=== PATIENT | female | born 1980 | race Two or more races ===

== ENCOUNTER 2020-04-09 05:36 | Emergency (ER) | payer SELFPAY ==
[~2020-04-09] VITALS: Ht 172.7 cm; Wt 54.4 kg
[~2020-04-09 05:36] MED LIST: Albuterol 90mcg Inhaler 8gm INH SCH
[2020-04-09 05:42] VITALS: BP 184/97
[2020-04-09] MEDS ORDERED: LORazepam Inj 2mg/ml 1ml IV ONE (05:45)
[2020-04-09] MEDS ORDERED: Albuterol ud Inhalation HHN ONE (05:45)
--- NOTE | 2020-04-09 05:48 | Emergency Room Report ---
History of Present Illness General Chief Complaint: Dyspnea/Respdistress Source: Patient, EMS (Dimitris Leon MD) Present Illness HPI This is a 40-year-old female with a history of asthma. She presents with chief complaint of shortness of breath. She woke up and that she could not breathe. She is gasping for air. Bystander called 911. Paramedics said that oxygenation was normal but she keep gasping for air. No fever chills but no nausea no vomiting. Patient said that she had this episode before went to the hospital and was given a shot and gent. Patient denies any fever chills but denies any nausea or vomiting. [place] tingly to her body. [place] chest tightness and pain. Pain is 10 out of 10. (Dimitris Leon MD) Allergies: Coded Allergies: No Known Allergies (Unverified , 04/09/20) COVID-19 Screening Contact w/high risk pt: No Recent Travel to affected area: No Experienced COVID-19 symptoms?: No COVID-19 Testing performed TRUCK UNLOADER: No (Dimitris Leon MD) Patient History Past Medical History: see triage record, old chart reviewed, asthma Past Surgical History: none Pertinent Family History: none Social History: Denies: smoking Now: No Immunizations: other Reviewed Nursing Documentation: PMH: Agreed; PSxH: Agreed (Dimitris Leon MD) Nursing Documentation-PMH Hx Hypertension: Yes Hx Asthma: Yes (Dimitris Leon MD) Review of Systems Eye: Denies: eye pain, blurred vision ENT: Denies: ear pain, nose congestion, throat swelling Respiratory: Reports: shortness of breath; Denies: cough Cardiovascular: Denies: chest pain, palpitations Gastrointestinal: Denies: abdominal pain, diarrhea, nausea, vomiting Musculoskeletal: Denies: back pain, joint pain Skin: Denies: rash Neurological: Denies: headache, numbness Endocrine: Denies: increased thirst, increased urine Hematologic/Lymphatic: Denies: easy bruising All Other Systems: negative except mentioned in HPI (Dimitris Leon MD) Physical Exam Vital Signs Date Time Temp Pulse Resp B/P (MAP) Pulse Ox O2 Delivery O2 Flow Rate FiO2 04/09/20 05:37 97.9 109 35 170/99 (122) 99 Room Air Vitals with tachypnea and hypertension Sp02 EP Interpretation: reviewed, normal General Appearance: well appearing, alert, moderate distress Head: normocephalic, atraumatic Eyes: bilateral eye PERRL, bilateral eye EOMI ENT: hearing grossly normal, normal pharynx Neck: full range of motion, supple, no meningismus Respiratory: chest non-tender, lungs clear, normal breath sounds Cardiovascular #1: regular rate, rhythm, no murmur Gastrointestinal: normal bowel sounds, non tender, no mass, no organomegaly, no bruit, non-distended Musculoskeletal: back normal, normal range of motion, gait/station normal Psychiatric: anxious - Extremely anxious (Dimitris Leon MD) Medical Decision Making Diagnostic Impression: Primary Impression: Panic attack Additional Impressions: Cocaine abuse Asthma Qualified Codes: J45.20 - Mild intermittent asthma, uncomplicated ER Course Kahn presents with symptom consistent with panic attack. She is respiratory distress. She never been here before. Will work-up to check for underlying issues. Labs and x-rays are pending. If normal will discharge home. Labs unremarkable. CT scan negative for PE. Urine drug screen positive for drugs from cocaine. This most likely a panic attack from drug induced. (Dimitris Leon MD) ER Course Patient signed out to me pending laboratory studies and reassessment. Urine drug screen positive for cocaine. Chest x-ray reviewed and showed no acute infiltrate. Patient's vital signs stable. D-dimer mildly elevated above normal so CT angiogram of the chest was ordered and showed no evidence of acute pulmonary emboli. Patient stable for discharge. She was counseled on her drug abuse. She was provided albuterol as needed for shortness of breath or wheezing however she had no wheezing in the ER. So did not believe she was in acute asthma exacerbation at this time. Laboratory Tests Test 04/09/20 05:45 04/09/20 06:25 White Blood Count 7.7 K/UL (4.8-10.8) Red Blood Count 3.67 M/UL (4.20-5.40) L Hemoglobin 11.5 G/DL (12.0-16.0) L Hematocrit 33.7 % (37.0-47.0) L Mean Corpuscular Volume 92 FL (80-99) Mean Corpuscular Hemoglobin 31.2 PG (27.0-31.0) H Mean Corpuscular Hemoglobin Concent 33.9 G/DL (32.0-36.0) Red Cell Distribution Width 12.0 % (11.6-14.8) Platelet Count 247 K/UL (150-450) Mean Platelet Volume 4.5 FL (6.5-10.1) L Neutrophils (%) (Auto) 66.8 % (45.0-75.0) Lymphocytes (%) (Auto) 18.2 % (20.0-45.0) L Monocytes (%) (Auto) 13.1 % (1.0-10.0) H Eosinophils (%) (Auto) 1.1 % (0.0-3.0) Basophils (%) (Auto) 0.7 % (0.0-2.0) D-Dimer 0.54 mg/L FEU (0.00-0.49) H Sodium Level 141 MMOL/L (136-145) Potassium Level 3.4 MMOL/L (3.5-5.1) L Chloride Level 102 MMOL/L (98-107) Carbon Dioxide Level 27 MMOL/L (21-32) Anion Gap 12 mmol/L (5-15) Blood Urea Nitrogen 11 mg/dL (7-18) Creatinine 0.6 MG/DL (0.55-1.30) Estimated Glomerular Filtration Rate > 60 mL/min (>60) Glucose Level 101 MG/DL (74-106) Calcium Level 8.5 MG/DL (8.5-10.1) Total Bilirubin 0.8 MG/DL (0.2-1.0) Aspartate Amino Transferase (AST) 67 U/L (15-37) H Alanine Aminotransferase (ALT) 41 U/L (12-78) Alkaline Phosphatase 89 U/L (46-116) Troponin I 0.000 ng/mL (0.000-0.056) Pro-B-Type Natriuretic Peptide 31 pg/mL (0-125) Total Protein 7.9 G/DL (6.4-8.2) Albumin 4.0 G/DL (3.4-5.0) Globulin 3.9 g/dL Albumin/Globulin Ratio 1.0 (1.0-2.7) Urine Color Yellow Urine Appearance Clear Urine pH 6.5 (4.5-8.0) Urine Specific [place] 1.015 (1.005-1.035) Urine Protein 2+ (NEGATIVE) H Urine Glucose (UA) Negative (NEGATIVE) Urine Ketones 3+ (NEGATIVE) H Urine Blood 1+ (NEGATIVE) H Urine Nitrite Negative (NEGATIVE) Urine Bilirubin Negative (NEGATIVE) Urine Urobilinogen 4 MG/DL (0.0-1.0) H Urine Leukocyte Esterase 1+ (NEGATIVE) H Urine RBC 0-2 /HPF (0 - 2) Urine WBC 0-2 /HPF (0 - 2) Urine Squamous Epithelial Cells Few /LPF (NONE/OCC) Urine Bacteria Few /HPF (NONE) Urine HCG, Qualitative Negative (NEGATIVE) Urine Opiates Screen Negative (NEGATIVE) Urine Barbiturates Screen Negative (NEGATIVE) Phencyclidine (PCP) Screen Negative (NEGATIVE) Urine Amphetamines Screen Negative (NEGATIVE) Urine Benzodiazepines Screen Negative (NEGATIVE) Urine Cocaine Screen Positive (NEGATIVE) H Urine Marijuana (THC) Screen Negative (NEGATIVE) (Pelon Perez M.D.) EKG Diagnostic Results Rate: tachycardiac Rhythm: NSR ST Segments: no acute changes (Dimitris Leon MD) Rhythm Strip Diag. Results EP Interpretation: yes Rate: 88 Rhythm: NSR, no PVC's, no ectopy (Dimitris Leon MD) CT/MRI/US Diagnostic Results CT/MRI/US Diagnostic Results : Imaging Test Ordered: CT chest Impression Negative per radiologist (Dimitris Leon MD) CT/MRI/US Diagnostic Results : Imaging Test Ordered: CT angiogram of the chest Impression FINDINGS: Pulmonary arteries: Evaluation for peripheral pulmonary emboli slightly limited due to breathing motion artifact. No central emboli are identified. Aorta: No acute findings. No thoracic aortic aneurysm. Lungs: There is mild bibasilar atelectasis. No consolidating infiltrates identified. Note is also made of a 5 mm calcified granuloma in the left lower lobe. Pleural space: Unremarkable. No significant effusion. No pneumothorax. Heart: Unremarkable. No cardiomegaly. No significant pericardial effusion. No evidence of RV dysfunction. Bones/joints: No acute fracture. No dislocation. Soft tissues: Unremarkable. Lymph nodes: Unremarkable. No enlarged lymph nodes. IMPRESSION: No acute findings in the visualized arteries of the chest. (Pelon Perez M.D.) Last Vital Signs Date Time Temp Pulse Resp B/P (MAP) Pulse Ox O2 Delivery O2 Flow Rate FiO2 6/2/20 05:42 97.9 121 35 184/97 99 Room Air Status: improved (Dimitris Leon MD) Status: improved (Pelon Perez M.D.) Disposition: HOME, SELF-CARE Condition: Stable Scripts Ibuprofen* (MOTRIN*) 600 Mg Tablet 600 MG ORAL Q6H PRN for For Pain, #30 TAB 0 Refills Prov: Pelon Perez M.D. 04/09/20 Albuterol Sulfate* (Albuterol Sulfate Hfa*) 8.5 Gm Hfa.aer.ad 2 PUFF INH Q6H, #1 INH Prov: Pelon Perez M.D. 04/09/20 Dimitris Leon MD Apr 09, 2020 05:48 Pelon Perez M.D. Apr 09, 2020 08:57
[2020-04-09 05:56] VITALS: BP 132/82
[2020-04-09 06:18] LABS: BASOPHILS % (AUTO) 0.7 % (0.0-2.0); EOSINOPHILS % (AUTO) 1.1 % (0.0-3.0); HEMATOCRIT 33.7 % (37.0-47.0); HEMOGLOBIN 11.5 G/DL (12.0-16.0); LYMPHOCYTES % (AUTO) 18.2 % (20.0-45.0); MEAN CORPUSCULAR VOLUME 92 FL (80-99); MONOCYTES % (AUTO) 13.1 % (1.0-10.0); NEUTROPHILS % (AUTO) 66.8 % (45.0-75.0); PLATELET COUNT 247 K/UL (150-450); RED BLOOD COUNT 3.67 M/UL (4.20-5.40); WHITE BLOOD COUNT 7.7 K/UL (4.8-10.8)
[2020-04-09 06:20] LABS: ANION GAP 12 mmol/L (5-15); BLOOD UREA NITROGEN 11 mg/dL (7-18); CALCIUM 8.5 MG/DL (8.5-10.1); CARBON DIOXIDE 27 MMOL/L (21-32); CHLORIDE 102 MMOL/L (98-107); CREATININE 0.6 MG/DL (0.55-1.30); POTASSIUM 3.4 MMOL/L (3.5-5.1); SODIUM 141 MMOL/L (136-145)
[2020-04-09 06:30] LABS: ALANINE AMINOTRANSFERASE 41 U/L (12-78); ALKALINE PHOSPHATASE 89 U/L (46-116); ASPARTATE AMINO TRANSFERASE 67 U/L (15-37); BILIRUBIN,TOTAL 0.8 MG/DL (0.2-1.0)
[2020-04-09] MEDS ORDERED: Acetaminophen 500mg (ES) tab ORAL ONE (06:30)
[2020-04-09 06:36] LABS: APPEARANCE,URINE CLEAR; BILIRUBIN, URINE NEGATIVE (NEGATIVE); GLUCOSE, URINE (UA) NEGATIVE (NEGATIVE); KETONES,URINE 3+ (NEGATIVE); LEUKOCYTE ESTERASE ,URINE 1+ (NEGATIVE); NITRITE,URINE NEGATIVE (NEGATIVE); PH,URINE 6.5 (4.5-8.0); PROTEIN,URINE 2+ (NEGATIVE); UROBILINOGEN,URINE 4 MG/DL (0.0-1.0)
[2020-04-09 06:46] LABS: COLOR,URINE YELLOW
[2020-04-09] MEDS ORDERED: Omnipaque 350 100ml vial INJ PRN (07:00)
--- NOTE | 2020-04-09 08:08 | Diagnostic Imaging Report ---
EXAM: CT Angiography Chest With Intravenous Contrast CLINICAL HISTORY: SOB TECHNIQUE: Axial computed tomographic angiography images of the chest with intravenous contrast. CTDI is 30 mGy and DLP is 139 mGy-cm. One or more of the following dose reduction techniques were used: automated exposure control, adjustment of the mA and/or kV according to patient size, use of iterative reconstruction technique. 3D and MIP reconstructed images were created and reviewed. COMPARISON: No relevant prior studies available. FINDINGS: Pulmonary arteries: Evaluation for peripheral pulmonary emboli slightly limited due to breathing motion artifact. No central emboli are identified. Aorta: No acute findings. No thoracic aortic aneurysm. Lungs: There is mild bibasilar atelectasis. No consolidating infiltrates identified. Note is also made of a 5 mm calcified granuloma in the left lower lobe. Pleural space: Unremarkable. No significant effusion. No pneumothorax. Heart: Unremarkable. No cardiomegaly. No significant pericardial effusion. No evidence of RV dysfunction. Bones/joints: No acute fracture. No dislocation. Soft tissues: Unremarkable. Lymph nodes: Unremarkable. No enlarged lymph nodes. IMPRESSION: No acute findings in the visualized arteries of the chest.
[2020-04-09] MEDS ORDERED: ALBUTEROL SULF8.5 G1 INH (08:18)
[2020-04-09] MEDS ORDERED: IBUPROFEN600 M1 ORAL (08:19)
[2020-04-09 09:16] VITALS: BP 126/76
--- NOTE | 2020-04-10 17:07 | Diagnostic Imaging Report ---
Indication: Shortness of breath Technique: One view of the chest Comparison: none Findings: Inspiration is suboptimal. The lungs and pleural spaces are clear. The heart size is normal. Impression: No acute process
== END 2020-04-09 09:16 | disposition home or self-care (01) ==
LOC: EDBD 05:36 → EMR 05:55
DX: F41.0 Panic disorder [episodic paroxysmal anxiety] (principal); F14.10 Cocaine abuse, uncomplicated; J45.20 Mild intermittent asthma, uncomplicated; I10 Essential (primary) hypertension; I26.99 Other pulmonary embolism without acute cor pulmonale
CPT/HCPCS: 36415; 71045; 71275; 80053; 80307; 81003; 81025; 83880; 84484; 85025; 85379; 93005; 96361; 96374; 99284; J7030; Q9967

== ENCOUNTER 2020-09-28 15:12 | Emergency (ER) | payer SELFPAY ==
[~2020-09-28] VITALS: Ht 157.5 cm; Wt 68.0 kg
[~2020-09-28 15:12] MED LIST changes: +ALBUTEROL SULF8.5 G1 INH; -Albuterol 90mcg Inhaler 8gm INH SCH; +IBUPROFEN600 M1 ORAL
[2020-09-28 15:16] VITALS: BP 138/78
--- NOTE | 2020-09-28 15:16 | NUR ---
ED Nurse Note: Pt ERNESTINE GUTIERREZ from the street c/o abdominal pain. Pt also c/o headache and mild difficulty breathing. Pt has hx of asthma but is not any inhaler. Denies n/v/d. Pt reports drinking alcohol today, noted with alcohol breath odor. AAox4, verbally responsive. No SOB. Pt placed on quality assurance monitor body. ERMD at bedside.
[2020-09-28] MEDS ORDERED: Metoclopramide 10mg/2ml Inj IVP ONE (15:30)
[2020-09-28] MEDS ORDERED: DiphenhydrAMINE 50mg/ml Inj IVP ONE (15:30)
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
--- NOTE | 2020-09-28 15:32 | NUR ---
ED Nurse Note: Iv line established. Blood sent to lab.
--- NOTE | 2020-09-28 15:34 | NUR ---
ED Nurse Note: Xray at bedside.
--- NOTE | 2020-09-28 15:48 | NUR ---
ED Nurse Note: Urine sent to lab.
[2020-09-28 15:53] LABS: HEMATOCRIT 34.5 % (37.0-47.0); HEMOGLOBIN 11.2 G/DL (12.0-16.0); MEAN CORPUSCULAR VOLUME 98 FL (80-99); PLATELET COUNT 153 K/UL (150-450); RED BLOOD COUNT 3.53 M/UL (4.20-5.40); RED CELL DISTRIBUTION WIDTH 15.1 % (11.6-14.8); WHITE BLOOD COUNT 3.1 K/UL (4.8-10.8)
[2020-09-28 15:55] LABS: BASOPHILS % (AUTO) 2.2 % (0.0-2.0); EOSINOPHILS % (AUTO) 1.9 % (0.0-3.0); LYMPHOCYTES % (AUTO) 38.8 % (20.0-45.0); MONOCYTES % (AUTO) 10.7 % (1.0-10.0); NEUTROPHILS % (AUTO) 46.4 % (45.0-75.0)
[2020-09-28 16:00] LABS: APPEARANCE,URINE CLEAR; BILIRUBIN, URINE NEGATIVE (NEGATIVE); COLOR,URINE PALE YELLOW; GLUCOSE, URINE (UA) NEGATIVE (NEGATIVE); KETONES,URINE NEGATIVE (NEGATIVE); LEUKOCYTE ESTERASE ,URINE NEGATIVE (NEGATIVE); NITRITE,URINE NEGATIVE (NEGATIVE); PH,URINE 5 (4.5-8.0); PROTEIN,URINE NEGATIVE (NEGATIVE); UROBILINOGEN,URINE NORMAL MG/DL (0.0-1.0)
[2020-09-28 16:11] LABS: AMMONIA 28 umol/L (11-32)
[2020-09-28 16:12] LABS: ALANINE AMINOTRANSFERASE 95 U/L (12-78); ALBUMIN 3.5 G/DL (3.4-5.0); ALBUMIN/GLOBULIN RATIO 0.9 (1.0-2.7); ALKALINE PHOSPHATASE 144 U/L (46-116); ASPARTATE AMINO TRANSFERASE 210 U/L (15-37); BILIRUBIN,TOTAL 0.4 MG/DL (0.2-1.0); BLOOD UREA NITROGEN 6 mg/dL (7-18); CALCIUM 8.3 MG/DL (8.5-10.1); CARBON DIOXIDE 26 MMOL/L (21-32); CHLORIDE 104 MMOL/L (98-107); CREATININE 0.6 MG/DL (0.55-1.30); POTASSIUM 3.3 MMOL/L (3.5-5.1); SODIUM 141 MMOL/L (136-145)
--- NOTE | 2020-09-28 16:26 | Diagnostic Imaging Report ---
History: ABD PAIN Exam: XR CXR 1 VIEW Comparison: 04/09/2020 FINDINGS: The lungs are clear. The cardiac and mediastinal contours appear within limits. Right lateral lower rib fracture deformities with appearance of callus noted. IMPRESSION: No evidence of acute disease.
[2020-09-28 18:06] VITALS: BP 132/71
[2020-09-28 19:01] VITALS: BP 132/71
--- NOTE | 2020-09-28 19:01 | NUR ---
ED Nurse Note: Pt cleared by ERMD for discharge. DC instructions was given and explained to pt and verbalized understanding of teachings. All medical deviecs such as ID band and IV line removed. Pt is AAO x4, ambulatory and left with all personal belongings.
[2020-09-28] MEDS ORDERED: TYLENOL325 MG ORAL (19:03)
[2020-09-28] MEDS ORDERED: FAMOTIDINE20 MG ORAL (19:03)
[2020-09-28] MEDS ORDERED: ALBUTEROL SULF8.5 G1 INH (19:06)
--- NOTE | 2020-09-29 20:37 | Cardiology Report ---
APPROVED REPORT EKG Measurement Heart [id number] <Conclusion> Normal sinus rhythm Normal ECG
== END 2020-09-28 19:01 | disposition other institution (70) ==
LOC: EDBD 15:12 → EMR 15:25
DX: R10.84 Generalized abdominal pain (principal); F10.929 Alcohol use, unspecified with intoxication, unspecified; F14.10 Cocaine abuse, uncomplicated; R74.01 Elevation of levels of liver transaminase levels; I10 Essential (primary) hypertension; J45.909 Unspecified asthma, uncomplicated; Z79.899 Other long term (current) drug therapy
CPT/HCPCS: 36415; 71045; 80053; 80307; 81003; 81025; 82140; 83690; 84484; 85025; 85610; 85730; 93005; 96361; 96374; 96375; 99284; G0480; J1200; J2765; J7030; S0028

== ENCOUNTER 2020-09-30 11:37 | Inpatient (IN) | payer BC, MEDICAID, OTHER ==
[~2020-09-30] VITALS: Ht 154.9 cm; Wt 61.2 kg
[~2020-09-30 11:37] MED LIST changes: +FAMOTIDINE20 MG ORAL; +TYLENOL325 MG ORAL
[2020-09-30] MEDS ORDERED: Morphine Sulfate 4mg/ml Inj (IV USE ONLY) IVP ONE ×4 (11:45→17:45)
[2020-09-30] MEDS ORDERED: Omnipaque-300 100ml vial INJ PRN (11:45)
[2020-09-30 11:55] LABS: BASOPHILS % (AUTO) 1.7 % (0.0-2.0); HEMATOCRIT 39.7 % (37.0-47.0); HEMOGLOBIN 12.4 G/DL (12.0-16.0); LYMPHOCYTES % (AUTO) 45.5 % (20.0-45.0); MEAN CORPUSCULAR VOLUME 103 FL (80-99); MONOCYTES % (AUTO) 6.9 % (1.0-10.0); PLATELET COUNT 180 K/UL (150-450); RED BLOOD COUNT 3.87 M/UL (4.20-5.40); RED CELL DISTRIBUTION WIDTH 14.4 % (11.6-14.8); WHITE BLOOD COUNT 3.9 K/UL (4.8-10.8)
--- NOTE | 2020-09-30 12:11 | Emergency Room Report ---
History of Present Illness General Chief Complaint: Abdominal Pain Source: Patient, EMS (Ferny Hart MD) Present Illness HPI Disclaimer: Please note that this report is being documented using DRAGON technology. This can lead to erroneous entry secondary to incorrect in terpretation by the dictating instrument. HPI: 40-year-old female arrives by EMS for complaints of abdominal pain. Symptoms began this morning. She reports epigastric abdominal pain 10 out of 10 severity that radiates through the entire abdomen. Denies nausea, vomiting or diarrhea. States she ate chicken and rice last night. Denies fever or chills. Reports recently being treated for pneumonia otherwise states she takes no medications. Prior abdominal surgery. Reports pain over the flanks as well. De nies dysuria or hematuria. PMH: Reviewed PSH: unspecified abd surgery Allergies: Reviewed Social Hx: Substance abuse (Ferny Hart MD) Allergies: Coded Allergies: No Known Allergies (Unverified , 09/30/20) COVID-19 Screening Contact w/high risk pt: No Experienced COVID-19 symptoms?: No COVID-19 Testing performed DRESS CAP MAKER: No (Ferny Hart MD) Patient History Now: No (Ferny Hart MD) Review of Systems All Other Systems: negative except mentioned in HPI (Ferny Hart MD) Physical Exam Vital Signs Date Time Temp Pulse Resp B/P (MAP) Pulse Ox O2 Delivery O2 Flow Rate FiO2 09/30/20 11:29 97.9 86 18 134/65 (88) 96 Room Air General: Awake and alert, appears uncomfortable, crying HEENT: NC/AT. EOMI. Cardiovascular: RRR. S1 and S2 normal. No murmur appreciated Resp: Normal work of breathing. Abdomen: Abdomen is soft, nondistended. Tender palpation in the epigastrium. Full exam limited due to poor patient cooperation. Skin: Intact. No abrasions, laceration or rash over the exposed skin MSK: Normal tone and bulk. Moving all extremities. No obvious deformity. Neuro: Awake and alert. Mentating appropriately. (Ferny Hart MD) Procedures Critical Care Time Critical Care Time Total critical care time: Approximately 45 minutes Due to a high probability of clinically significant, life threatening deteriora tion, the patient required the highest level of preparedness to intervene emergently and I personally spent this critical care time directly and personally managing the patient. This critical care time included obtaining a history, examining the patient, pulse oximetry, ordering and reviewing studies, ordering treatments, evaluating response to treatment and updating management plan as needed, frequent reassessment and discussion with other providers as well as arranging for ultimate disposition. This critical to care time was performed to assess and manage the high probability of life-threatening deterioration that could result in multiorgan failure. This critical care time is separate from the separately billable procedures and treating other patients. (Ferny Hart MD) Medical Decision Making Diagnostic Impression: Primary Impression: Internal hernia Additional Impression: Bowel obstruction ER Course 40-year-old female presents for evaluation of sudden onset abdominal pain since this morning. Differential includes was not limited to gastritis, gastroenteritis, pancreatitis, cholecystitis, hepatitis, nephrolithiasis, pyelonephritis, appendicitis, bowel obstruction, mesenteric ischemia to name a few. Patient arrives visibly uncomfortable. IV fluids, pain medication and antiemetics are provided. Blood work returned largely within normal limits. CT concerning for internal hernia and mesenteric ischemia/bowel ischemia per radiology. Surgery consult obtained. Patient will be admitted. Preop labs ordered Laboratory Tests Test 09/30/20 11:40 White Blood Count 3.9 K/UL (4.8-10.8) L Red Blood Count 3.87 M/UL (4.20-5.40) L Hemoglobin 12.4 G/DL (12.0-16.0) Hematocrit 39.7 % (37.0-47.0) Mean Corpuscular Volume 103 FL (80-99) H Mean Corpuscular Hemoglobin 32.0 PG (27.0-31.0) H Mean Corpuscular Hemoglobin Concent 31.2 G/DL (32.0-36.0) L Red Cell Distribution Width 14.4 % (11.6-14.8) Platelet Count 180 K/UL (150-450) Mean Platelet Volume 6.7 FL (6.5-10.1) Neutrophils (%) (Auto) 45.0 % (45.0-75.0) Lymphocytes (%) (Auto) 45.5 % (20.0-45.0) H Monocytes (%) (Auto) 6.9 % (1.0-10.0) Eosinophils (%) (Auto) 1.0 % (0.0-3.0) Basophils (%) (Auto) 1.7 % (0.0-2.0) Sodium Level 140 MMOL/L (136-145) Potassium Level 3.0 MMOL/L (3.5-5.1) L Chloride Level 102 MMOL/L (98-107) Carbon Dioxide Level 26 MMOL/L (21-32) Anion Gap 12 mmol/L (5-15) Blood Urea Nitrogen 7 mg/dL (7-18) Creatinine 0.6 MG/DL (0.55-1.30) Estimated Glomerular Filtration Rate > 60 mL/min (>60) Glucose Level 137 MG/DL (74-106) H Calcium Level 8.7 MG/DL (8.5-10.1) Total Bilirubin 0.7 MG/DL (0.2-1.0) Aspartate Amino Transferase (AST) 156 U/L (15-37) H Alanine Aminotransferase (ALT) 93 U/L (12-78) H Alkaline Phosphatase 134 U/L (46-116) H Total Protein 8.1 G/DL (6.4-8.2) Albumin 4.0 G/DL (3.4-5.0) Globulin 4.1 g/dL Albumin/Globulin Ratio 1.0 (1.0-2.7) Lipase 391 U/L (73-393) Human Chorionic Gonadotropin, Qual Negative (NEGATIVE) (Ferny Hart MD) ER Course Endorsed to me by Dr. Hart. Surgery has been consulted and has been seen by Dr. Tovar. Patient was given pain medications and lactic acid level was noted to be elevated. Repeat patient given further IV fluids and pain medications. Dr. Germán Díaz was contacted for inpatient management due to panel physician. (Stephan Cabrera MD) Last Vital Signs Date Time Temp Pulse Resp B/P (MAP) Pulse Ox O2 Delivery O2 Flow Rate FiO2 09/30/20 11:29 97.9 86 18 134/65 (88) 96 Room Air (Ferny Hart MD) Disposition: ADMITTED INPATIENT Condition: Serious Scripts Unable to Obtain Active Prescriptions or Reported Meds Ferny Hart MD Sep 30, 2020 12:11 Stephan Cabrera MD Sep 30, 2020 16:31
[2020-09-30 12:23] LABS: ALANINE AMINOTRANSFERASE 93 U/L (12-78); ALKALINE PHOSPHATASE 134 U/L (46-116); ANION GAP 12 mmol/L (5-15); ASPARTATE AMINO TRANSFERASE 156 U/L (15-37); BILIRUBIN,TOTAL 0.7 MG/DL (0.2-1.0); BLOOD UREA NITROGEN 7 mg/dL (7-18); CALCIUM 8.7 MG/DL (8.5-10.1); CARBON DIOXIDE 26 MMOL/L (21-32); CHLORIDE 102 MMOL/L (98-107); CREATININE 0.6 MG/DL (0.55-1.30); SODIUM 140 MMOL/L (136-145)
[2020-09-30] MEDS ORDERED: LORazepam Inj 2mg/ml 1ml IV ONE ×2 (13:00→16:45)
--- NOTE | 2020-09-30 14:33 | Diagnostic Imaging Report ---
Clinical Indication: Bilateral flank pain Technique: No oral contrast utilized, per emergency room physician request IV administration nonionic contrast. Venous phase spiral acquisition obtained through the abdomen and pelvis. Multiplanar reconstructions were generated. Total dose length product 211 mGycm. CTDIvol(s) 4 mGy. Dose reduction achieved using automated exposure control Comparison: none Findings: Lack of enteric contrast limits assessment of the GI tract. There are thick-walled jejunal loops in the left side of the abdomen enhance considerably less than the remainder of the small bowel and there is some distortion of the mesenteric root in this area. The underlying mesentery is very edematous, and there is also some free fluid intercalating along the leaves of the mesentery. A small amount of ascites fluid is also seen in the pelvis. Small bowel loops leading into the area of abnormality are somewhat prominent and gas-filled. Small bowel exiting the area of abnormality appears somewhat compressed. The visualized mesenteric vessels appear to be patent. The appendix is normal. A surgical staple line is seen involving what is probably distal ileum, although the anatomy of this region is somewhat distorted. Some small bowel feces are seen in the distal small bowel indicating stasis of contents. No evidence of diverticulosis or diverticulitis. The stomach is somewhat distended. No free intraperitoneal gas. The liver, gallbladder, bile ducts, pancreas, spleen, adrenals, kidneys are unremarkable. No retroperitoneal or mesenteric mass or adenopathy. No pelvic mass or adenopathy. The bladder is unremarkable. The uterus and ovaries are unremarkable. The included lung bases demonstrate some posterior atelectatic changes. The bones demonstrate degenerative spondylosis changes. Impression: Long segment of proximal jejunal wall thickening, decreased enhancement, and marked congestion of the attached mesentery. Although there is only minimal if any bowel dilatation, the possibility of a strangulated internal hernia should be considered. Ischemic or nonischemic enteritis also is a possibility. Critical value findings discussed by phone with Drs. Hart and La at the time of interpretation Free intraperitoneal fluid, presumably related to the above Evidence of prior distal ileal surgery Small bowel feces distally, indicating stasis of contents Posterior pulmonary parenchymal atelectatic changes Spondylosis The CT scanner at [facility] is accredited by the [employer] and the scans are performed using protocols designed to limit radiation exposure to as low as reasonably achievable to attain images of sufficient resolution adequate for diagnostic evaluation.
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
[2020-09-30] MEDS ORDERED: HYDROmorphone 1mg/ml Carpuject IVP ONE ×2 (14:45→15:30)
[2020-09-30 15:01] VITALS: BP 110/70
[2020-09-30 17:00] VITALS: BP 119/75
[2020-09-30 17:26] LABS: APPEARANCE,URINE CLEAR; BILIRUBIN, URINE NEGATIVE (NEGATIVE); GLUCOSE, URINE (UA) NEGATIVE (NEGATIVE); KETONES,URINE 3+ (NEGATIVE); LEUKOCYTE ESTERASE ,URINE NEGATIVE (NEGATIVE); NITRITE,URINE NEGATIVE (NEGATIVE); PH,URINE 6.5 (4.5-8.0); PROTEIN,URINE 2+ (NEGATIVE); UROBILINOGEN,URINE 1 MG/DL (0.0-1.0)
[2020-09-30 17:51] LABS: COLOR,URINE YELLOW
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
[2020-09-30 18:55] VITALS: BP 83/50
[2020-09-30 20:00] VITALS: BP 89/67
[2020-10-01] VITALS: BP 84/57
[2020-10-01] MEDS: Morphine Sulfate 4mg/ml Inj (IV USE ONLY) IVP PRN ×2 (01:04→05:19)
[2020-10-01 04:00] VITALS: BP 104/71
[2020-10-01 06:13] LABS: BASOPHILS % (AUTO) 0.3 % (0.0-2.0); EOSINOPHILS % (AUTO) 0.2 % (0.0-3.0); HEMATOCRIT 35.4 % (37.0-47.0); LYMPHOCYTES % (AUTO) 10.2 % (20.0-45.0); MEAN CORPUSCULAR VOLUME 104 FL (80-99); MONOCYTES % (AUTO) 7.7 % (1.0-10.0); NEUTROPHILS % (AUTO) 81.7 % (45.0-75.0); PLATELET COUNT 148 K/UL (150-450); RED BLOOD COUNT 3.42 M/UL (4.20-5.40); RED CELL DISTRIBUTION WIDTH 14.6 % (11.6-14.8); WHITE BLOOD COUNT 8.7 K/UL (4.8-10.8)
[2020-10-01 06:45] LABS: ALANINE AMINOTRANSFERASE 54 U/L (12-78); ALBUMIN 2.6 G/DL (3.4-5.0); ALBUMIN/GLOBULIN RATIO 0.8 (1.0-2.7); ALKALINE PHOSPHATASE 95 U/L (46-116); AMYLASE 38 U/L (25-115); ANION GAP 8 mmol/L (5-15); ASPARTATE AMINO TRANSFERASE 66 U/L (15-37); BLOOD UREA NITROGEN 17 mg/dL (7-18); CALCIUM 7.2 MG/DL (8.5-10.1); CARBON DIOXIDE 24 MMOL/L (21-32); CHLORIDE 107 MMOL/L (98-107); CREATININE 0.6 MG/DL (0.55-1.30); POTASSIUM 4.1 MMOL/L (3.5-5.1); SODIUM 139 MMOL/L (136-145)
[2020-10-01] MEDS ORDERED: Albuterol 90mcg Inhaler 8gm INH SCH (07:00)
[2020-10-01 08:00] VITALS: BP 125/70
[2020-10-01] MEDS: Morphine Sulfate 2mg/ml Inj(IV/IM USE ONLY) IVP PRN ×3 (09:28→20:19)
[2020-10-01] MEDS ORDERED: LORazepam 1mg tab ORAL PRN (09:45)
--- NOTE | 2020-10-01 09:53 | General Progress Note ---
Subjective Allergies: Coded Allergies: No Known Allergies (Unverified , 04/09/20) Subjective care noted having asthma attack Objective Last 24 Hour Vital Signs Date Time Temp Pulse Resp B/P (MAP) Pulse Ox O2 Delivery O2 Flow Rate FiO2 10/01/20 07:57 Room Air 21 10/01/20 07:57 Room Air 21 10/01/20 05:49 97.8 10/01/20 04:00 98.0 90 19 104/71 (82) 100 10/01/20 01:34 97.8 10/01/20 00:00 97.8 102 19 84/57 (66) 97 09/30/20 22:42 Room Air 09/30/20 20:00 97.8 101 19 89/67 (74) 97 09/30/20 18:55 98.6 106 19 83/50 (61) 97 09/30/20 18:15 98.6 91 20 139/86 99 Room Air 09/30/20 17:14 81 20 126/79 98 09/30/20 17:00 98.1 95 18 119/75 99 Room Air 09/30/20 16:44 90 18 110/70 98 09/30/20 15:01 98.2 90 18 110/70 98 Room Air 09/30/20 14:59 92 18 Room Air 09/30/20 13:43 87 18 132/67 98 09/30/20 13:13 92 22 141/72 97 09/30/20 11:29 97.9 86 18 134/65 (88) 96 Room Air Laboratory Tests 09/30/20 11:40: White Blood Count 3.9L, Red Blood Count 3.87L, Hemoglobin 12.4, Hematocrit 39.7, Mean Corpuscular Volume 103H, Mean Corpuscular Hemoglobin 32.0H, Mean Corpuscular Hemoglobin Concent 31.2L, Red Cell Distribution Width 14.4, Platelet Count 180, Mean Platelet Volume 6.7, Neutrophils (%) (Auto) 45.0, Lymphocytes (%) (Auto) 45.5H, Monocytes (%) (Auto) 6.9, Eosinophils (%) (Auto) 1.0, Basophils (%) (Auto) 1.7, Sodium Level 140, Potassium Level 3.0L, Chloride Level 102, Carbon Dioxide Level 26, Anion Gap 12, Blood Urea Nitrogen 7, Creatinine 0.6, Estimat Glomerular Filtration Rate > 60, Glucose Level 137H, Calcium Level 8.7, Total Bilirubin 0.7, Aspartate Amino Transf (AST/SGOT) 156H, Alanine Aminotransferase (ALT/SGPT) 93H, Alkaline Phosphatase 134H, Total Protein 8.1, Albumin 4.0, Globulin 4.1, Albumin/Globulin Ratio 1.0, Lipase 391, Human Chorionic Gonadotropin, Qual Negative 09/30/20 14:22: Prothrombin Time 10.7, Prothromb Time International Ratio 1.0, Activated Partial Thromboplast Time 22L, Lactic Acid Level 2.60H 09/30/20 15:55: Lactic Acid Level 3.00H 09/30/20 16:50: Urine Color Yellow, Urine Appearance Clear, Urine pH 6.5, Urine Specific [place] 1.010, Urine Protein 2+H, Urine Glucose (UA) Negative, Urine Ketones 3+H, Urine Blood Negative, Urine Nitrite Negative, Urine Bilirubin Negative, Urine Urobilinogen 1H, Urine Leukocyte Esterase Negative, Urine RBC 0-2, Urine WBC 0- 2, Urine Squamous Epithelial Cells Few, Urine Bacteria Few, Urine HCG, Donovan litative Negative, Urine Opiates Screen PositiveH, Urine Barbiturates Screen Negative, Phencyclidine (PCP) Screen Negative, Urine Amphetamines Screen Negative, Urine Benzodiazepines Screen Negative, Urine Cocaine Screen PositiveH, Urine Marijuana (THC) Screen Negative 10/01/20 05:00: White Blood Count 8.7#, Red Blood Count 3.42L, Hemoglobin 11.0L, Hematocrit 35.4L, Mean Corpuscular Volume 104H, Mean Corpuscular Hemoglobin 32.2H, Mean Corpuscular Hemoglobin Concent 31.1L, Red Cell Distribution Width 14.6, Platelet Count 148L, Mean Platelet Volume 6.6, Neutrophils (%) (Auto) 81.7H, Lymphocytes (%) (Auto) 10.2L, Monocytes (%) (Auto) 7.7, Eosinophils (%) (Auto) 0.2, Basophils (%) (Auto) 0.3, Erythrocyte Sedimentation Rate 20, Prothrombin Time 10.8, Prothromb Time International Ratio 1.0, Activated Partial Thromboplast Time 26, Sodium Level 139, Potassium Level 4.1, Chloride Level 107, Carbon Dioxide Level 24, Anion Gap 8, Blood Urea Nitrogen 17, Creatinine 0.6, Estimat Glomerular Filtration Rate > 60, Glucose Level 91, Lactic Acid Level 0.90, Calcium Level 7.2L, Total Bilirubin 1.0, Aspartate Amino Transf (AST/SGOT) 66H, Alanine Aminotransferase (ALT/SGPT) 54, Alkaline Phosphatase 95, C-Reactive Protein, Quantitative 1.8H, Total Protein 5.9L, Albumin 2.6L, Globulin 3.3, Albumin/Globulin Ratio 0.8L, Amylase Level 38, Lipase 116 Height (Feet): 5 Height (Inches): 1.00 Weight (Pounds): 135 Objective WDWN NAD clear breath sounds bilaterally (when seen) [id number] without MRG diffuse abdominal tenderness no CCE nonfocal Assessment/Plan Assessment/Plan: IMPRESSION: Possible strangulated internal hernia with significant abdominal pain, possible ischemic versus nonischemic enteritis, elevated liver enzymes, possibly due to alcoholic hepatitis, history of drug abuse. Asthma exacerbation RECOMMENDATION: IV solumedrol and Albuterol; Ativan PRN; ABG and CXR; Surgical followup. NPO. IV hydration. Pain control. Follow up laboratories, imaging. Consider empiric antibiotics and defer care to Surgery and we will discuss. Germán Díaz MD Oct 01, 2020 09:53
[2020-10-01] MEDS: Solu-MEDROL 125mg Inj IVP SCH ×2 (10:07→22:20)
--- NOTE | 2020-10-01 11:24 | Surgery Progress Note ---
Surgery Progress Note Subjective Additional Comments states feels better today pain decreased passing flatus no n/v labs improved lactic acid improved with hydration abd exam benign today Objective Last 24 Hour Vital Signs Date Time Temp Pulse Resp B/P (MAP) Pulse Ox O2 Delivery O2 Flow Rate FiO2 10/01/20 09:58 97.8 10/01/20 09:00 Room Air 10/01/20 08:00 97.5 94 19 125/70 (88) 100 10/01/20 07:57 Room Air 21 10/01/20 07:57 Room Air 21 10/01/20 05:49 97.8 10/01/20 04:00 98.0 90 19 104/71 (82) 100 10/01/20 01:34 97.8 10/01/20 00:00 97.8 102 19 84/57 (66) 97 09/30/20 22:42 Room Air 09/30/20 20:00 97.8 101 19 89/67 (74) 97 09/30/20 18:55 98.6 106 19 83/50 (61) 97 09/30/20 18:15 98.6 91 20 139/86 99 Room Air 09/30/20 17:14 81 20 126/79 98 09/30/20 17:00 98.1 95 18 119/75 99 Room Air 09/30/20 16:44 90 18 110/70 98 09/30/20 15:01 98.2 90 18 110/70 98 Room Air 09/30/20 14:59 92 18 Room Air 09/30/20 13:43 87 18 132/67 98 09/30/20 13:13 92 22 141/72 97 09/30/20 11:29 97.9 86 18 134/65 (88) 96 Room Air Cardiovascular: RSR Respiratory: clear Abdomen: soft, flat, non-tender, present bowel sounds, non-distended Extremities: no edema, no tenderness, no cyanosis Laboratory Tests Test 09/30/20 11:40 09/30/20 14:22 09/30/20 15:55 09/30/20 16:50 White Blood Count 3.9 K/UL (4.8-10.8) L Red Blood Count 3.87 M/UL (4.20-5.40) L Hemoglobin 12.4 G/DL (12.0-16.0) Hematocrit 39.7 % (37.0-47.0) Mean Corpuscular Volume 103 FL (80-99) H Mean Corpuscular Hemoglobin 32.0 PG (27.0-31.0) H Mean Corpuscular Hemoglobin Concent 31.2 G/DL (32.0-36.0) L Red Cell Distribution Width 14.4 % (11.6-14.8) Platelet Count 180 K/UL (150-450) Mean Platelet Volume 6.7 FL (6.5-10.1) Neutrophils (%) (Auto) 45.0 % (45.0-75.0) Lymphocytes (%) (Auto) 45.5 % (20.0-45.0) H Monocytes (%) (Auto) 6.9 % (1.0-10.0) Eosinophils (%) (Auto) 1.0 % (0.0-3.0) Basophils (%) (Auto) 1.7 % (0.0-2.0) Sodium Level 140 MMOL/L (136-145) Potassium Level 3.0 MMOL/L (3.5-5.1) L Chloride Level 102 MMOL/L (98-107) Carbon Dioxide Level 26 MMOL/L (21-32) Anion Gap 12 mmol/L (5-15) Blood Urea Nitrogen 7 mg/dL (7-18) Creatinine 0.6 MG/DL (0.55-1.30) Estimat Glomerular Filtration Rate > 60 mL/min (>60) Glucose Level 137 MG/DL (74-106) H Calcium Level 8.7 MG/DL (8.5-10.1) Total Bilirubin 0.7 MG/DL (0.2-1.0) Aspartate Amino Transf (AST/SGOT) 156 U/L (15-37) H Alanine Aminotransferase (ALT/SGPT) 93 U/L (12-78) H Alkaline Phosphatase 134 U/L (46-116) H Total Protein 8.1 G/DL (6.4-8.2) Albumin 4.0 G/DL (3.4-5.0) Globulin 4.1 g/dL Albumin/Globulin Ratio 1.0 (1.0-2.7) Lipase 391 U/L (73-393) Human Chorionic Gonadotropin, Qual Negative (NEGATIVE) Prothrombin Time 10.7 SEC (9.30-11.50) Prothromb Time International Ratio 1.0 (0.9-1.1) Activated Partial Thromboplast Time 22 SEC (23-33) L Lactic Acid Level 2.60 mmol/L (0.4-2.0) H 3.00 mmol/L (0.4-2.0) H Urine Color Yellow Urine Appearance Clear Urine pH 6.5 (4.5-8.0) Urine Specific [place] 1.010 (1.005-1.035) Urine Protein 2+ (NEGATIVE) H Urine Glucose (UA) Negative (NEGATIVE) Urine Ketones 3+ (NEGATIVE) H Urine Blood Negative (NEGATIVE) Urine Nitrite Negative (NEGATIVE) Urine Bilirubin Negative (NEGATIVE) Urine Urobilinogen 1 MG/DL (0.0-1.0) H Urine Leukocyte Esterase Negative (NEGATIVE) Urine RBC 0-2 /HPF (0 - 2) Urine WBC 0-2 /HPF (0 - 2) Urine Squamous Epithelial Cells Few /LPF (NONE/OCC) Urine Bacteria Few /HPF (NONE) Urine HCG, Qualitative Negative (NEGATIVE) Urine Opiates Screen Positive (NEGATIVE) H Urine Barbiturates Screen Negative (NEGATIVE) Phencyclidine (PCP) Screen Negative (NEGATIVE) Urine Amphetamines Screen Negative (NEGATIVE) Urine Benzodiazepines Screen Negative (NEGATIVE) Urine Cocaine Screen Positive (NEGATIVE) H Urine Marijuana (THC) Screen Negative (NEGATIVE) Test 10/01/20 05:00 10/01/20 09:39 White Blood Count 8.7 K/UL (4.8-10.8) # Red Blood Count 3.42 M/UL (4.20-5.40) L Hemoglobin 11.0 G/DL (12.0-16.0) L Hematocrit 35.4 % (37.0-47.0) L Mean Corpuscular Volume 104 FL (80-99) H Mean Corpuscular Hemoglobin 32.2 PG (27.0-31.0) H Mean Corpuscular Hemoglobin Concent 31.1 G/DL (32.0-36.0) L Red Cell Distribution Width 14.6 % (11.6-14.8) Platelet Count 148 K/UL (150-450) L Mean Platelet Volume 6.6 FL (6.5-10.1) Neutrophils (%) (Auto) 81.7 % (45.0-75.0) H Lymphocytes (%) (Auto) 10.2 % (20.0-45.0) L Monocytes (%) (Auto) 7.7 % (1.0-10.0) Eosinophils (%) (Auto) 0.2 % (0.0-3.0) Basophils (%) (Auto) 0.3 % (0.0-2.0) Erythrocyte Sedimentation Rate 20 MM/HR (0-20) Prothrombin Time 10.8 SEC (9.30-11.50) Prothromb Time International Ratio 1.0 (0.9-1.1) Activated Partial Thromboplast Time 26 SEC (23-33) Sodium Level 139 MMOL/L (136-145) Potassium Level 4.1 MMOL/L (3.5-5.1) Chloride Level 107 MMOL/L (98-107) Carbon Dioxide Level 24 MMOL/L (21-32) Anion Gap 8 mmol/L (5-15) Blood Urea Nitrogen 17 mg/dL (7-18) Creatinine 0.6 MG/DL (0.55-1.30) Estimat Glomerular Filtration Rate > 60 mL/min (>60) Glucose Level 91 MG/DL (74-106) Lactic Acid Level 0.90 mmol/L (0.4-2.0) Calcium Level 7.2 MG/DL (8.5-10.1) L Total Bilirubin 1.0 MG/DL (0.2-1.0) Aspartate Amino Transf (AST/SGOT) 66 U/L (15-37) H Alanine Aminotransferase (ALT/SGPT) 54 U/L (12-78) Alkaline Phosphatase 95 U/L (46-116) C-Reactive Protein, Quantitative 1.8 mg/dL (0.00-0.90) H Total Protein 5.9 G/DL (6.4-8.2) L Albumin 2.6 G/DL (3.4-5.0) L Globulin 3.3 g/dL Albumin/Globulin Ratio 0.8 (1.0-2.7) L Amylase Level 38 U/L (25-115) Lipase 116 U/L (73-393) Arterial Blood pH 7.344 (7.350-7.450) Arterial Blood Partial Pressure CO2 42.4 mmHg (35.0-45.0) Arterial Blood Partial Pressure O2 111.1 mmHg (75.0-100.0) H Arterial Blood HCO3 22.6 mmol/L (22.0-26.0) Arterial Blood Oxygen Saturation 97.4 % (95-100) Arterial Blood Base Excess -3.0 (-2-2) L [place] Test Positive Plan Problems: (1) Bowel obstruction (2) Panic attack (3) Asthma (4) Cocaine abuse (5) Abdominal pain Assessment & Plan: 40F abd pain. hx drug use c/o abd pain generalized and body pain asking fo rpain medication labs noted ct reviewed exam not consistent npo iv fluids iv abx will follow with serial exams and recs thank you improved pain improving passing flatus no n/v exam benign labs improved start trial clear liquid diet (6) Acute alcohol intoxication (7) Elevated lipase (8) Abdominal pain Assessment & Plan: Lack of enteric contrast limits assessment of the GI tract. There are thick-walled jejunal loops in the left side of the abdomen enhance considerably less than the remainder of the small bowel and there is some distortion of the mesenteric root in this area. The underlying mesentery is very edematous, and there is also some free fluid intercalating along the leaves of the mesentery. A small amount of ascites fluid is also seen in the pelvis. Small bowel loops leading into the area of abnormality are somewhat prominent and gas-filled. Small bowel exiting the area of abnormality appears somewhat compressed. The visualized mesenteric vessels appear to be patent. The appendix is normal. A surgical staple line is seen involving what is probably distal ileum, although the anatomy of this region is somewhat distorted. Some small bowel feces are seen in the distal small bowel indicating stasis of contents. No evidence of diverticulosis or diverticulitis. The stomach is somewhat distended. No free intraperitoneal gas. The liver, gallbladder, bile ducts, pancreas, spleen, adrenals, kidneys are unremarkable. No retroperitoneal or mesenteric mass or adenopathy. No pelvic mass or adenopathy. The bladder is unremarkable. The uterus and ovaries are unremarkable. The included lung bases demonstrate some posterior atelectatic changes. The bones demonstrate degenerative spondylosis changes. Impression: Long segment of proximal jejunal wall thickening, decreased enhancement, and marked congestion of the attached mesentery. Although there is only minimal if any bowel dilatation, the possibility of a strangulated internal hernia should be considered. Ischemic or nonischemic enteritis also is a possibility. Critical value findings discussed by phone with Drs. Hart and La at the time of interpretation Free intraperitoneal fluid, presumably related to the above Evidence of prior distal ileal surgery Small bowel feces distally, indicating stasis of contents Posterior pulmonary parenchymal atelectatic changes Spondylosis (9) Internal hernia Brian Tovar Oct 01, 2020 11:24
[2020-10-01] MEDS: Albuterol 90mcg Inhaler 8gm INH SCH ×4 (11:27→23:51)
[2020-10-01 12:00] VITALS: BP 135/97
[2020-10-01] MEDS: Piperacillin/Tazobactam 3.375 GM in NS 110 ML IVPB SCH ×2 (14:01→22:20)
--- NOTE | 2020-10-01 14:25 | Diagnostic Imaging Report ---
Indication: Abdominal pain Technique: Supine view of the abdomen Comparison: none Findings: Mildly to moderately dilated gas filled small bowel loops are seen in the October quadrant and left midabdomen. Normal colon gas is demonstrated. No masses or unusual calcifications. Impression: Dilated gas-filled small bowel loops. Differential considerations include ileus/enteritis, small bowel obstruction Dr. Tovar notified at the time of interpretation
--- NOTE | 2020-10-01 14:37 | Diagnostic Imaging Report ---
Indication: Shortness of breath Technique: One view of the chest Comparison: 09/28/2020 Findings: There is some atelectasis at both lung bases, left greater than right. The lungs and pleural spaces are otherwise clear. The heart size is normal. Impression: Bilateral basilar atelectasis No acute process otherwise
[2020-10-01 16:00] VITALS: BP 140/87
[2020-10-01 20:00] VITALS: BP 137/89
[2020-10-02] VITALS: BP 127/87
[2020-10-02] MEDS: Morphine Sulfate 2mg/ml Inj(IV/IM USE ONLY) IVP PRN ×4 (03:10→17:04)
[2020-10-02] MEDS: Albuterol 90mcg Inhaler 8gm INH SCH ×7 (03:32→23:00)
[2020-10-02 04:00] VITALS: BP 134/61
[2020-10-02] MEDS: Piperacillin/Tazobactam 3.375 GM in NS 110 ML IVPB SCH ×3 (05:25→21:38)
[2020-10-02 06:28] LABS: BASOPHILS % (AUTO) 0.6 % (0.0-2.0); EOSINOPHILS % (AUTO) 0.6 % (0.0-3.0); HEMATOCRIT 30.3 % (37.0-47.0); HEMOGLOBIN 9.4 G/DL (12.0-16.0); LYMPHOCYTES % (AUTO) 16.8 % (20.0-45.0); MEAN CORPUSCULAR VOLUME 104 FL (80-99); MONOCYTES % (AUTO) 10.3 % (1.0-10.0); NEUTROPHILS % (AUTO) 71.7 % (45.0-75.0); PLATELET COUNT 126 K/UL (150-450); RED BLOOD COUNT 2.92 M/UL (4.20-5.40); RED CELL DISTRIBUTION WIDTH 13.9 % (11.6-14.8)
[2020-10-02 06:56] LABS: ALANINE AMINOTRANSFERASE 40 U/L (12-78); ALBUMIN 2.7 G/DL (3.4-5.0); ALBUMIN/GLOBULIN RATIO 0.8 (1.0-2.7); ALKALINE PHOSPHATASE 80 U/L (46-116); ANION GAP 5 mmol/L (5-15); ASPARTATE AMINO TRANSFERASE 38 U/L (15-37); BLOOD UREA NITROGEN 6 mg/dL (7-18); CALCIUM 8.1 MG/DL (8.5-10.1); CARBON DIOXIDE 28 MMOL/L (21-32); CHLORIDE 103 MMOL/L (98-107); CREATININE 0.5 MG/DL (0.55-1.30); POTASSIUM 2.9 MMOL/L (3.5-5.1); SODIUM 136 MMOL/L (136-145)
[2020-10-02 08:00] VITALS: BP 144/77
[2020-10-02] MEDS: Solu-MEDROL 125mg Inj IVP SCH (08:17)
[2020-10-02 12:00] VITALS: BP 138/86
--- NOTE | 2020-10-02 14:23 | General Progress Note ---
Subjective Allergies: Coded Allergies: No Known Allergies (Unverified , 04/09/20) Subjective care noted BREATHING BETTER Objective Last 24 Hour Vital Signs Date Time Temp Pulse Resp B/P (MAP) Pulse Ox O2 Delivery O2 Flow Rate FiO2 10/02/20 13:00 98.3 10/02/20 12:00 98.4 71 18 138/86 (103) 98 10/02/20 11:09 74 20 99 Nasal Cannula 1.0 24 10/02/20 11:09 73 20 99 Nasal Cannula 1.0 24 10/02/20 09:00 Room Air 10/02/20 08:47 98.3 10/02/20 08:00 98.1 87 18 144/77 (99) 98 10/02/20 04:00 98.3 65 18 134/61 (85) 97 10/02/20 03:40 97.3 10/02/20 03:34 92 22 97 Room Air 21 10/02/20 03:32 91 22 97 Room Air 21 10/02/20 00:00 97.3 86 18 127/87 (100) 100 10/01/20 23:54 81 18 98 Room Air 21 10/01/20 23:51 79 20 98 Room Air 21 10/01/20 22:39 Room Air 10/01/20 20:49 98.0 10/01/20 20:00 97.9 83 18 137/89 (105) 100 10/01/20 20:00 99 Room Air 21 10/01/20 19:40 100 Nasal Cannula 1.0 24 10/01/20 19:40 95 18 100 Nasal Cannula 1.0 24 10/01/20 19:38 95 20 100 Nasal Cannula 1.0 24 10/01/20 16:54 98.0 10/01/20 16:00 97.8 92 19 140/87 (104) 98 10/01/20 15:53 80 16 98 Room Air 21 10/01/20 15:50 81 16 98 Room Air 21 Intake and Output 10/01/20 10/02/20 19:00 07:00 Intake Total 350 ml Balance 350 ml Intake Oral 350 ml # Voids 3 2 Laboratory Tests 10/02/20 05:25: White Blood Count 5.0, Red Blood Count 2.92L, Hemoglobin 9.4L, Hematocrit 30.3L, Mean Corpuscular Volume 104H, Mean Corpuscular Hemoglobin 32.1H, Mean Corpuscular Hemoglobin Concent 30.9L, Red Cell Distribution Width 13.9, Platelet Count 126L, Mean Platelet Volume 7.1, Neutrophils (%) (Auto) 71.7, Lymphocytes (%) (Auto) 16.8L, Monocytes (%) (Auto) 10.3H, Eosinophils (%) (Auto) 0.6, Basophils (%) (Auto) 0.6, Sodium Level 136, Potassium Level 2.9L, Chloride Level 103, Carbon Dioxide Level 28, Anion Gap 5, Blood Urea Nitrogen 6L, Creatinine 0.5L, Estimat Glomerular Filtration Rate > 60, Glucose Level 101, Lactic Acid Level 1.10, Calcium Level 8.1L, Total Bilirubin 1.0, Aspartate Amino Transf (AST/SGOT) 38H, Alanine Aminotransferase (ALT/SGPT) 40, Alkaline Phosphatase 80, Total Protein 6.0L, Albumin 2.7L, Globulin 3.3, Albumin/Globulin Ratio 0.8L Height (Feet): 5 Height (Inches): 1.00 Weight (Pounds): 135 Objective WDWN NAD clear breath sounds bilaterally (when seen) [id number] without MRG diffuse abdominal tenderness no CCE nonfocal Assessment/Plan Assessment/Plan: IMPRESSION: Possible strangulated internal hernia with significant abdominal pain, possible ischemic versus nonischemic enteritis, elevated liver enzymes, possibly due to alcoholic hepatitis, history of drug abuse. Asthma exacerbation RECOMMENDATION: IV solumedrol (DC in am) and Albuterol; Ativan PRN; ABG and CXR; Surgical followup discussed. NPO. IV hydration. Pain control. Follow up laboratories, imaging. Consider empiric antibiotics and defer care to Surgery and we will discuss. Germán Díaz MD Oct 02, 2020 14:23
[2020-10-02 16:00] VITALS: BP 147/96
--- NOTE | 2020-10-02 16:31 | Diagnostic Imaging Report ---
Indication: Abdominal pain Technique: Supine view of the abdomen Comparison: 10/01/2020 Findings: There is considerable gas throughout the small bowel, which is mildly dilated. Gas is also seen within the colon which is nondistended. Overall amount of bowel gas is increased from the prior study, but the caliber of the individual loops appear somewhat improved. Impression: Increased volume of small bowel gas but overall slightly decreased caliber small bowel loops; suspect findings represent ileus with slight improvement, although ongoing partial small bowel obstruction also possible. Recommend follow-up radiographs with consideration for CT as indicated
--- NOTE | 2020-10-02 18:20 | Surgery Progress Note ---
Surgery Progress Note Subjective Additional Comments feels better today pain improved kub reviewed likely ileus resolving passing flatus wants regular food Objective Last 24 Hour Vital Signs Date Time Temp Pulse Resp B/P (MAP) Pulse Ox O2 Delivery O2 Flow Rate FiO2 10/02/20 17:12 99 20 97 Nasal Cannula 1.0 24 10/02/20 17:12 98 19 98 Nasal Cannula 1.0 24 10/02/20 16:00 98.8 85 18 147/96 (113) 98 10/02/20 13:00 98.3 10/02/20 12:00 98.4 71 18 138/86 (103) 98 10/02/20 11:09 74 20 99 Nasal Cannula 1.0 24 10/02/20 11:09 73 20 99 Nasal Cannula 1.0 24 10/02/20 09:00 Room Air 10/02/20 08:47 98.3 10/02/20 08:15 90 18 99 Nasal Cannula 1.0 24 10/02/20 08:15 92 18 99 Nasal Cannula 1.0 24 10/02/20 08:00 98.1 87 18 144/77 (99) 98 10/02/20 04:00 98.3 65 18 134/61 (85) 97 10/02/20 03:40 97.3 10/02/20 03:34 92 22 97 Room Air 10/02/20 03:32 91 22 97 Room Air 21 10/02/20 00:00 97.3 86 18 127/87 (100) 100 10/01/20 23:54 81 18 98 Room Air 10/01/20 23:51 79 20 98 Room Air 21 10/01/20 22:39 Room Air 10/01/20 20:49 98.0 10/01/20 20:00 97.9 83 18 137/89 (105) 100 10/01/20 20:00 99 Room Air 21 10/01/20 19:40 100 Nasal Cannula 1.0 24 10/01/20 19:40 95 18 100 Nasal Cannula 1.0 24 10/01/20 19:38 95 20 100 Nasal Cannula 1.0 24 I&O Intake and Output 10/01/20 10/02/20 19:00 07:00 Intake Total 350 ml Balance 350 ml Intake Oral 350 ml # Voids 3 2 Cardiovascular: RSR Respiratory: clear Abdomen: soft, distended, non-tender, present bowel sounds Extremities: no edema, no tenderness, no cyanosis Laboratory Tests Test 10/02/20 05:25 White Blood Count 5.0 K/UL (4.8-10.8) Red Blood Count 2.92 M/UL (4.20-5.40) L Hemoglobin 9.4 G/DL (12.0-16.0) L Hematocrit 30.3 % (37.0-47.0) L Mean Corpuscular Volume 104 FL (80-99) H Mean Corpuscular Hemoglobin 32.1 PG (27.0-31.0) H Mean Corpuscular Hemoglobin Concent 30.9 G/DL (32.0-36.0) L Red Cell Distribution Width 13.9 % (11.6-14.8) Platelet Count 126 K/UL (150-450) L Mean Platelet Volume 7.1 FL (6.5-10.1) Neutrophils (%) (Auto) 71.7 % (45.0-75.0) Lymphocytes (%) (Auto) 16.8 % (20.0-45.0) L Monocytes (%) (Auto) 10.3 % (1.0-10.0) H Eosinophils (%) (Auto) 0.6 % (0.0-3.0) Basophils (%) (Auto) 0.6 % (0.0-2.0) Sodium Level 136 MMOL/L (136-145) Potassium Level 2.9 MMOL/L (3.5-5.1) L Chloride Level 103 MMOL/L (98-107) Carbon Dioxide Level 28 MMOL/L (21-32) Anion Gap 5 mmol/L (5-15) Blood Urea Nitrogen 6 mg/dL (7-18) L Creatinine 0.5 MG/DL (0.55-1.30) L Estimat Glomerular Filtration Rate > 60 mL/min (>60) Glucose Level 101 MG/DL (74-106) Lactic Acid Level 1.10 mmol/L (0.4-2.0) Calcium Level 8.1 MG/DL (8.5-10.1) L Total Bilirubin 1.0 MG/DL (0.2-1.0) Aspartate Amino Transf (AST/SGOT) 38 U/L (15-37) H Alanine Aminotransferase (ALT/SGPT) 40 U/L (12-78) Alkaline Phosphatase 80 U/L (46-116) Total Protein 6.0 G/DL (6.4-8.2) L Albumin 2.7 G/DL (3.4-5.0) L Globulin 3.3 g/dL Albumin/Globulin Ratio 0.8 (1.0-2.7) L Plan Problems: (1) Bowel obstruction (2) Panic attack (3) Asthma (4) Cocaine abuse (5) Abdominal pain Assessment & Plan: 40F abd pain. hx drug use c/o abd pain generalized and body pain asking fo rpain medication labs noted ct reviewed exam not consistent npo iv fluids iv abx will follow with serial exams and recs thank you improved pain improving passing flatus no n/v exam benign labs improved start trial clear liquid diet adv diet as tolerated follow with exam possible cocaine induced mesenteric low flow. could potentially cause ischemia but likely just intermittent low flow which resulted in enteritis and now ileus overally has improved in past two days exam improved afebrile, HD Stable will follow closely (6) Acute alcohol intoxication (7) Elevated lipase (8) Abdominal pain Assessment & Plan: Lack of enteric contrast limits assessment of the GI tract. There are thick-walled jejunal loops in the left side of the abdomen enhance considerably less than the remainder of the small bowel and there is some distortion of the mesenteric root in this area. The underlying mesentery is very edematous, and there is also some free fluid intercalating along the leaves of the mesentery. A small amount of ascites fluid is also seen in the pelvis. Small bowel loops leading into the area of abnormality are somewhat prominent and gas-filled. Small bowel exiting the area of abnormality appears somewhat compressed. The visualized mesenteric vessels appear to be patent. The appendix is normal. A surgical staple line is seen involving what is probably distal ileum, although the anatomy of this region is somewhat distorted. Some small bowel feces are seen in the distal small bowel indicating stasis of contents. No evidence of diverticulosis or diverticulitis. The stomach is somewhat distended. No free intraperitoneal gas. The liver, gallbladder, bile ducts, pancreas, spleen, adrenals, kidneys are unremarkable. No retroperitoneal or mesenteric mass or adenopathy. No pelvic m ass or adenopathy. The bladder is unremarkable. The uterus and ovaries are unremarkable. The included lung bases demonstrate some posterior atelectatic changes. The bones demonstrate degenerative spondylosis changes. Impression: Long segment of proximal jejunal wall thickening, decreased enhancement, and marked congestion of the attached mesentery. Although there is only minimal if any bowel dilatation, the possibility of a strangulated internal hernia should be considered. Ischemic or nonischemic enteritis also is a possibility. Critical value findings discussed by phone with Drs. Hart and La at the time of interpretation Free intraperitoneal fluid, presumably related to the above Evidence of prior distal ileal surgery Small bowel feces distally, indicating stasis of contents Posterior pulmonary parenchymal atelectatic changes Spondylosis (9) Internal hernia Brian Tovar Oct 02, 2020 18:20
[2020-10-02 20:00] VITALS: BP 131/76
[2020-10-03] VITALS: BP 153/96
[2020-10-03] MEDS: Albuterol 90mcg Inhaler 8gm INH SCH ×3 (03:00→11:25)
[2020-10-03 04:00] VITALS: BP 146/89
[2020-10-03] MEDS: Morphine Sulfate 2mg/ml Inj(IV/IM USE ONLY) IVP PRN (05:32)
[2020-10-03] MEDS: Piperacillin/Tazobactam 3.375 GM in NS 110 ML IVPB SCH (05:38)
[2020-10-03 07:22] LABS: BASOPHILS % (AUTO) 0.9 % (0.0-2.0); EOSINOPHILS % (AUTO) 0.7 % (0.0-3.0); HEMATOCRIT 28.7 % (37.0-47.0); HEMOGLOBIN 9.2 G/DL (12.0-16.0); LYMPHOCYTES % (AUTO) 27.2 % (20.0-45.0); MEAN CORPUSCULAR VOLUME 99 FL (80-99); MONOCYTES % (AUTO) 11.3 % (1.0-10.0); NEUTROPHILS % (AUTO) 59.9 % (45.0-75.0); PLATELET COUNT 130 K/UL (150-450); RED BLOOD COUNT 2.88 M/UL (4.20-5.40); RED CELL DISTRIBUTION WIDTH 14.6 % (11.6-14.8); WHITE BLOOD COUNT 3.8 K/UL (4.8-10.8)
[2020-10-03 07:41] LABS: ALANINE AMINOTRANSFERASE 44 U/L (12-78); ALBUMIN 2.8 G/DL (3.4-5.0); ALBUMIN/GLOBULIN RATIO 0.8 (1.0-2.7); ALKALINE PHOSPHATASE 83 U/L (46-116); ANION GAP 5 mmol/L (5-15); ASPARTATE AMINO TRANSFERASE 49 U/L (15-37); BILIRUBIN,TOTAL 0.8 MG/DL (0.2-1.0); BLOOD UREA NITROGEN 3 mg/dL (7-18); CALCIUM 8.3 MG/DL (8.5-10.1); CARBON DIOXIDE 30 MMOL/L (21-32); CHLORIDE 106 MMOL/L (98-107); CREATININE 0.6 MG/DL (0.55-1.30); POTASSIUM 3.3 MMOL/L (3.5-5.1); SODIUM 141 MMOL/L (136-145)
[2020-10-03 08:00] VITALS: BP 126/84
--- NOTE | 2020-10-03 08:57 | General Progress Note ---
Subjective Allergies: Coded Allergies: No Known Allergies (Unverified , 04/09/20) Subjective care noted no sob Objective Last 24 Hour Vital Signs Date Time Temp Pulse Resp B/P (MAP) Pulse Ox O2 Delivery O2 Flow Rate FiO2 10/03/20 08:12 Room Air 10/03/20 08:00 98.1 68 20 126/84 (98) 100 10/03/20 07:59 86 18 100 Nasal Cannula 2.0 28 10/03/20 07:56 98 Nasal Cannula 2.0 28 10/03/20 07:56 83 18 98 Nasal Cannula 2.0 28 10/03/20 04:00 98.1 81 20 146/89 (108) 100 10/03/20 03:44 84 18 100 Nasal Cannula 2.0 28 10/03/20 03:44 78 18 100 Nasal Cannula 2.0 28 10/03/20 00:00 98.1 81 19 153/96 (115) 100 10/02/20 23:39 77 20 100 Nasal Cannula 2.0 28 10/02/20 23:38 77 18 99 Nasal Cannula 2.0 28 10/02/20 21:00 Room Air 10/02/20 20:14 86 20 100 Nasal Cannula 2.0 28 10/02/20 20:13 86 20 100 Nasal Cannula 2.0 28 10/02/20 20:11 99 Nasal Cannula 2.0 28 10/02/20 20:00 97.6 85 20 131/76 (94) 100 10/02/20 17:34 98.3 10/02/20 17:12 99 20 97 Nasal Cannula 1.0 24 10/02/20 17:12 98 19 98 Nasal Cannula 1.0 24 10/02/20 16:00 98.8 85 18 147/96 (113) 98 10/02/20 13:00 98.3 10/02/20 12:00 98.4 71 18 138/86 (103) 98 10/02/20 11:09 74 20 99 Nasal Cannula 1.0 24 10/02/20 11:09 73 20 99 Nasal Cannula 1.0 24 10/02/20 09:00 Room Air Intake and Output 10/02/20 10/03/20 19:00 07:00 Intake Total 600 ml 127.5 ml Balance 600 ml 127.5 ml Intake Oral 600 ml IV Total 127.5 ml # Voids 5 3 # Bowel Movements 1 Laboratory Tests 10/03/20 07:00: White Blood Count 3.8L, Red Blood Count 2.88L, Hemoglobin 9.2L, Hematocrit 28.7L , Mean Corpuscular Volume 99, Mean Corpuscular Hemoglobin 31.9H, Mean Corpuscular Hemoglobin Concent 32.1, Red Cell Distribution Width 14.6, Platelet Count 130L, Mean Platelet Volume 6.5, Neutrophils (%) (Auto) 59.9, Lymphocytes (%) (Auto) 27.2, Monocytes (%) (Auto) 11.3H, Eosinophils (%) (Auto) 0.7, Basophils (%) (Auto) 0.9, Erythrocyte Sedimentation Rate [Pending], Prothrombin Time 11.3, Prothromb Time International Ratio 1.0, Activated Partial Thromboplast Time 26, Sodium Level 141, Potassium Level 3.3L, Chloride Level 106, Carbon Dioxide Level 30, Anion Gap 5, Blood Urea Nitrogen 3L, Creatinine 0.6, Estimat Glomerular Filtration Rate > 60, Glucose Level 131H, Lactic Acid Level 1.10, Calcium Level 8.3L, Total Bilirubin 0.8, Aspartate Amino Transf (AST/SGOT) 49H, Alanine Aminotransferase (ALT/SGPT) 44, Alkaline Phosphatase 83, C-Reactive Protein, Quantitative 0.7, Total Protein 6.1L, Albumin 2.8L, Globulin 3.3, Albumin/Globulin Ratio 0.8L Height (Feet): 5 Height (Inches): 1.00 Weight (Pounds): 135 Objective WDWN NAD clear breath sounds bilaterally [id number] without MRG + abdominal tenderness no CCE nonfocal Assessment/Plan Assessment/Plan: IMPRESSION: Possible strangulated internal hernia with significant abdominal pain, possible ischemic versus nonischemic enteritis, elevated liver enzymes, possibly due to alcoholic hepatitis, history of drug abuse. Asthma exacerbation RECOMMENDATION: Albuterol; Ativan PRN ; Surgical followup discussed. ?NPO. IV hydration. Pain control. Follow up laboratories, imaging. dc antibiotics surgical clearance impression, plan, and exam edited and reviewed in detail care discussed with Germán Lassiter MD Oct 03, 2020 08:57
--- NOTE | 2020-10-03 10:29 | Surgery Progress Note ---
Surgery Progress Note Subjective Additional Comments afebrile, HD Stable labs okay exam improved pain almost gone no n/v/f/c tolerating diet had BM wnl passing flatus exam benign wants to go home today Objective Last 24 Hour Vital Signs Date Time Temp Pulse Resp B/P (MAP) Pulse Ox O2 Delivery O2 Flow Rate FiO2 10/03/20 08:12 Room Air 10/03/20 08:00 98.1 68 20 126/84 (98) 100 10/03/20 07:59 86 18 100 Nasal Cannula 2.0 28 10/03/20 07:56 98 Nasal Cannula 2.0 28 10/03/20 07:56 83 18 98 Nasal Cannula 2.0 28 10/03/20 04:00 98.1 81 20 146/89 (108) 100 10/03/20 03:44 84 18 100 Nasal Cannula 2.0 28 10/03/20 03:44 78 18 100 Nasal Cannula 2.0 28 10/03/20 00:00 98.1 81 19 153/96 (115) 100 10/02/20 23:39 77 20 100 Nasal Cannula 2.0 28 10/02/20 23:38 77 18 99 Nasal Cannula 2.0 28 10/02/20 21:00 Room Air 10/02/20 20:14 86 20 100 Nasal Cannula 2.0 28 10/02/20 20:13 86 20 100 Nasal Cannula 2.0 28 10/02/20 20:11 99 Nasal Cannula 2.0 28 10/02/20 20:00 97.6 85 20 131/76 (94) 100 10/02/20 17:34 98.3 10/02/20 17:12 99 20 97 Nasal Cannula 1.0 24 10/02/20 17:12 98 19 98 Nasal Cannula 1.0 24 10/02/20 16:00 98.8 85 18 147/96 (113) 98 10/02/20 13:00 98.3 10/02/20 12:00 98.4 71 18 138/86 (103) 98 10/02/20 11:09 74 20 99 Nasal Cannula 1.0 24 10/02/20 11:09 73 20 99 Nasal Cannula 1.0 24 I&O Intake and Output 10/02/20 10/03/20 19:00 07:00 Intake Total 600 ml 127.5 ml Balance 600 ml 127.5 ml Intake Oral 600 ml IV Total 127.5 ml # Voids 5 3 # Bowel Movements 1 Cardiovascular: RSR Respiratory: clear Abdomen: soft, non-tender, present bowel sounds, non-distended Extremities: no edema, no tenderness, no cyanosis Laboratory Tests Test 10/03/20 07:00 White Blood Count 3.8 K/UL (4.8-10.8) L Red Blood Count 2.88 M/UL (4.20-5.40) L Hemoglobin 9.2 G/DL (12.0-16.0) L Hematocrit 28.7 % (37.0-47.0) L Mean Corpuscular Volume 99 FL (80-99) Mean Corpuscular Hemoglobin 31.9 PG (27.0-31.0) H Mean Corpuscular Hemoglobin Concent 32.1 G/DL (32.0-36.0) Red Cell Distribution Width 14.6 % (11.6-14.8) Platelet Count 130 K/UL (150-450) L Mean Platelet Volume 6.5 FL (6.5-10.1) Neutrophils (%) (Auto) 59.9 % (45.0-75.0) Lymphocytes (%) (Auto) 27.2 % (20.0-45.0) Monocytes (%) (Auto) 11.3 % (1.0-10.0) H Eosinophils (%) (Auto) 0.7 % (0.0-3.0) Basophils (%) (Auto) 0.9 % (0.0-2.0) Erythrocyte Sedimentation Rate 26 MM/HR (0-20) H Prothrombin Time 11.3 SEC (9.30-11.50) Prothromb Time International Ratio 1.0 (0.9-1.1) Activated Partial Thromboplast Time 26 SEC (23-33) Sodium Level 141 MMOL/L (136-145) Potassium Level 3.3 MMOL/L (3.5-5.1) L Chloride Level 106 MMOL/L (98-107) Carbon Dioxide Level 30 MMOL/L (21-32) Anion Gap 5 mmol/L (5-15) Blood Urea Nitrogen 3 mg/dL (7-18) L Creatinine 0.6 MG/DL (0.55-1.30) Estimat Glomerular Filtration Rate > 60 mL/min (>60) Glucose Level 131 MG/DL (74-106) H Lactic Acid Level 1.10 mmol/L (0.4-2.0) Calcium Level 8.3 MG/DL (8.5-10.1) L Total Bilirubin 0.8 MG/DL (0.2-1.0) Aspartate Amino Transf (AST/SGOT) 49 U/L (15-37) H Alanine Aminotransferase (ALT/SGPT) 44 U/L (12-78) Alkaline Phosphatase 83 U/L (46-116) C-Reactive Protein, Quantitative 0.7 mg/dL (0.00-0.90) Total Protein 6.1 G/DL (6.4-8.2) L Albumin 2.8 G/DL (3.4-5.0) L Globulin 3.3 g/dL Albumin/Globulin Ratio 0.8 (1.0-2.7) L Plan Problems: (1) Bowel obstruction (2) Panic attack (3) Asthma (4) Cocaine abuse (5) Abdominal pain Assessment & Plan: 40F abd pain. hx drug use c/o abd pain generalized and body pain asking fo rpain medication labs noted ct reviewed exam not consistent npo iv fluids iv abx will follow with serial exams and recs thank you improved pain improving passing flatus no n/v exam benign labs improved start trial clear liquid diet adv diet as tolerated follow with exam possible cocaine induced mesenteric low flow. could potentially cause ischemia but likely just intermittent low flow which resulted in enteritis and now ileus overally has improved in past two days exam improved afebrile, HD Stable will follow closely likely as above improved labs okay exam stable and benign now pain resolving bowel function tolerating diet d/c home patient wants to go home today f/u with pcp soon after d/c for monitored care rx written, pepcid, tylenol, albuterol (6) Acute alcohol intoxication (7) Elevated lipase (8) Abdominal pain Assessment & Plan: Lack of enteric contrast limits assessment of the GI tract. There are thick-walled jejunal loops in the left side of the abdomen enhance considerably less than the remainder of the small bowel and there is some distortion of the mesenteric root in this area. The underlying mesentery is very edematous, and there is also some free fluid intercalating along the leaves of the mesentery. A small amount of ascites fluid is also seen in the pelvis. Small bowel loops leading into the area of abnormality are somewhat prominent and gas-filled. Small bowel exiting the area of abnormality appears somewhat compressed. The visualized mesenteric vessels appear to be patent. The appendix is normal. A surgical staple line is seen involving what is probably distal ileum, although the anatomy of this region is somewhat distorted. Some small bowel feces are seen in the distal small bowel indicating stasis of contents. No evidence of diverticulosis or diverticulitis. The stomach is somewhat distended. No free intraperitoneal gas. The liver, gallbladder, bile ducts, pancreas, spleen, adrenals, kidneys are unremarkable. No retroperitoneal or mesenteric mass or adenopathy. No pelvic mass or adenopathy. The bladder is unremarkable. The uterus and ovaries are unremarkable. The included lung bases demonstrate some posterior atelectatic changes. The bones demonstrate degenerative spondylosis changes. Impression: Long segment of proximal jejunal wall thickening, decreased enhancement, and marked congestion of the attached mesentery. Although there is only minimal if any bowel dilatation, the possibility of a strangulated internal hernia should be considered. Ischemic or nonischemic enteritis also is a possibility. Critical value findings discussed by phone with Drs. Hatr and La at the time of interpretation Free intraperitoneal fluid, presumably related to the above Evidence of prior distal ileal surgery Small bowel feces distally, indicating stasis of contents Posterior pulmonary parenchymal atelectatic changes Spondylosis (9) Internal hernia Brian Tovar Oct 03, 2020 10:29
--- NOTE | 2020-10-07 12:23 | Discharge Summary ---
Discharge Summary Discharge Summary _ DATE OF ADMISSION: 09/30/2020 DATE OF DISCHARGE: 10/03/2020 DISCHARGED BY: Dr. Díaz REASON FOR ADMISSION: 40 years old female with past medical history of substance abuse , presented to emergency department complaining of abdominal pain. Symptoms started earlier in the morning. Patient reported epigastric abdominal pain , 10 out of 10 radiating throughout the entire abdomen. She denied nausea, vomiting or diarrhea. She denied fever and chills. Patient was recently treated for pneumonia . She denies dysuria or hematuria . Upon evaluation vital signs were stable. Patient reported history of prior abdominal surgery. CT scan of the abdomen and pelvis revealed long segment of proximal jejunal wall thickening , decreased enhancement and mild congestion of the attached mesentery. The possibility of strangulated internal hernia should be considered. Ischemic or nonischemic enteritis also possibility. Laboratory work-up revealed WBC 3.9 ,stable hemoglobin, hematocrit and platelet count. Potassium 3.0 ,stable other electrolytes and renal parameters . Glucose 137. AST 156 , ALT 93. Serum and urine test were negative. Urine toxicology screen was positive for cocaine. Patient received IV hydration , analgesic , antiemetic, and admitted for further management. CONSULTANTS: surgery Dr. Tovar [facility] COURSE: Patient admitted to medical surgical floor. Patient was kept n.p.o. and provided with IV hydration. Potassium was replaced . Surgery followed. Pain management was addressed . Antiemetic provided as needed. Laboratory work-up was closely followed-up. Patient had serial KUB. Initial KUB showed dilated gas-filled small bowel loops . Patient was continued on bowel rest and IV fluids As patient clinically improved, she was able to pass flatus. Patient started on liquid diet and was able to tolerate it. Follow-up KUB revealed decreased small bowel loops, representing some improvement. LFT trending down. Amylase and lipase within normal limits. Lactic acid initially elevated 2.6, eventually trended down. Diet was advanced as tolerated. Patient was able to tolerate diet. Supplemental oxygen was on board as needed to keep pulse oximetry above 92%. Supportive care provided. Patient was counseled on abstinence from illicit street drugs. Patient clinically stabilized and was ready for discharge. FINAL DIAGNOSES: Possible strangulated internal hernia Bowel obstruction Drug abuse /cocaine Hypokalemia Asthma Transaminitis , possibly due to alcoholic hepatitis- improved DISCHARGE MEDICATIONS: See Medication Reconciliation list. DISCHARGE INSTRUCTIONS: Patient was discharged home. Patient was counseled on abstinence from illicit street drugs. Follow-up with a primary care provider in 1 week. I have been assigned to dictate discharge summary for this account. I was not involved in the patient's management. Shanthi Prasad NP Oct 07, 2020 12:23
== END 2020-10-03 11:30 | disposition home or self-care (01) | DRG 254 ==
LOC: EDBD 11:37 → EDUNIT# 11:55 → EMR 11:55 → 4E 15:35 → EDBEDREQ 16:33 → 4E 20:13
DX: K46.0 Unspecified abdominal hernia with obstruction, without gangrene (principal); J45.901 Unspecified asthma with (acute) exacerbation; K52.89 Other specified noninfective gastroenteritis and colitis; F41.0 Panic disorder [episodic paroxysmal anxiety]; J45.909 Unspecified asthma, uncomplicated; F14.10 Cocaine abuse, uncomplicated; R74.8 Abnormal levels of other serum enzymes; E87.6 Hypokalemia; K70.10 Alcoholic hepatitis without ascites
CPT/HCPCS: 36415; 71045; 74018; 74177; 80053; 80307; 81003; 81025; 82150; 82803; 83605; 83690; 84703; 85025; 85610; 85651; 85730; 86140; 86850; 86900; 86901; 94640; 96361; 96374; 96375; 96376; 99291; J2405; J7030; J8499; U0002